=== PATIENT | male | born 1995 | race Caucasian/White ===

== ENCOUNTER 2019-06-20 12:31 | Emergency (ER) | payer OTHER, SELFPAY ==
--- NOTE | ~2019-06-20 | XR_ITS ---
EXAMINATION: XR chest 2V 06/20/2019 13:12 INDICATION: Hemoptysis. Cough. PROCEDURE: 2 view chest COMPARISON: No prior studies for comparison. FINDINGS: The lungs are clear. The cardiomediastinal silhouette is within normal limits. There are no pleural effusions. There is no pneumothorax suspected. IMPRESSION: 1: NO ACUTE CARDIOPULMONARY DISEASE. 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
[2019-06-20 12:40] VITALS: BP 147/98; PULSE 62; RESP 18; TEMP 36.7; O2SAT 98
--- NOTE | 2019-06-20 13:28 | ED.URI ---
HPI - URI/Sore Throat General Chief Complaint: Upper Respiratory Infection Stated Complaint: sick for a week, coughing up blood Time Seen by Provider: 06/20/19 12:50 Source: patient Mode of arrival: ambulatory Limitations: no limitations History of Present Illness HPI Narrative: This is a 24-year-old male that presents the emergency department for cough x1 week. Also reports some fevers and congestion. Reports yesterday he saw some blood in his sputum which continued into today and prompted him to come be seen. Denies any chest pain or shortness of breath. Related Data Allergies Allergy/AdvReac Type Severity Reaction Status Date / Time No Known Allergies Allergy Verified 06/20/19 12:44 Review of Systems Review of Systems: Narrative: CONSTITUTIONAL: Reports fever, chills CARDIOVASCULAR: Denies chest pain RESPIRATORY: Reports cough. Denies dyspnea. All systems reviewed & are unremarkable except as noted in HPI and below PMFSH Social History Social History (Updated 06/20/19 @ 13:30 by Kay Snyder PA-C) Smoking status: Never smoker Substance use type: marijuana Gender identity (if verbalized by the patient): Male Exam Narrative: Exam Narrative: GENERAL: Well-appearing, well-nourished, and in no acute distress. HEAD: Normocephalic, atraumatic. EYES: EOMI. ENT: Nares clear, no rhinorrhea or epistaxis. Mucous membranes moist. Oropharynx without tonsillar hypertrophy exudate or other lesions. Bilateral TMs p[place] non-bulging NECK: Supple. No adenopathy or masses. CHEST: No respiratory distress. Mild scattered wheezes. No rales or rhonchi HEART: Regular rate and rhythm. No murmur heard. Normal peripheral pulses. EXTREMITIES: Normal range of motion. No edema. SKIN: Warm, dry, no rash. NEURO: No focal deficits. Alert and oriented x3. PSYCH: Normal mood and affect Course Vital Signs Vital signs: Vital Signs Temperature 98.1 F 06/20/19 12:40 Pulse Rate 62 06/20/19 12:40 Respiratory Rate 18 06/20/19 12:40 Blood Pressure 147/98 H 06/20/19 12:40 Pulse Oximetry 98 06/20/19 12:40 Temperature 98.1 F 06/20/19 12:40 Pulse Rate 62 06/20/19 12:40 Respiratory Rate 18 06/20/19 12:40 Blood Pressure 147/98 H 06/20/19 12:40 Pulse Oximetry 98 06/20/19 12:40 MDM - URI/Sore Throat MDM Narrative Medical decision making narrative: Patient presents emergency department for cough x1 week. He is afebrile and nontoxic-appearing. Mild scattered wheezes on exam, otherwise lungs are clear. Chest x-ray is without acute changes. Influenza screen is negative. Patient presented to the emergency department for a mild amount of blood tinge in his sputum. I spoke with patient about this likely being due to bronchitis. Patient is young and otherwise healthy with a clear chest x-ray. Patient will be given a primary care doctor for follow-up. He will be given albuterol as needed for home. Patient is stable and felt appropriate for further outpatient evaluation. He was given warnings to return to the ER Lab Data Labs: Influenza A Screen Negative Reference Range: Negative Influenza B Screen Negative Reference Range: Negative Imaging Data Radiologist's impression: ITS Impressions Chest X-Ray 06/20/19 13:24 IMPRESSION: 1: NO ACUTE CARDIOPULMONARY DISEASE. Critical Care Time Critical Care Time Critical Care Time: No Discharge Plan Discharge Clinical Impression: Bronchitis Patient Disposition: Home, Self-Care Condition: Stable Instructions: Acute Bronchitis (ED) Additional Instructions: Return to the emergency department for worsening symptoms, or any other concerns Remain well-hydrated, get plenty of rest. Albuterol as needed for shortness of breath or wheezing. Take Tylenol or Motrin [id number] for pain as needed. Flonase for nasal congestion. Zyrtec for runny nose. Lozenges or Chloraseptic spray fo
== END 2019-06-20 14:13 | disposition home or self-care (01) ==
PROVIDERS: Emergency Provider Emergency Medicine; Referring Provider Emergency Medicine
DX: J40 Bronchitis, not specified as acute or chronic (principal)
CPT/HCPCS: 71046; 87804; 99283